=== PATIENT | female | born 1950 | race Caucasian/White ===

== ENCOUNTER → 2016-06-26 | Outpatient (CLI) | payer MEDICARE, OTHER ==
[~2016-06-26] MED LIST: PROTONIX40 MG PO
== END ==
LOC: KOH-I 13:23
DX: R05 Cough (principal); M54.2 Cervicalgia; M54.9 Dorsalgia, unspecified; M47.816 Spondylosis without myelopathy or radiculopathy, lumbar region; M47.814 Spondylosis without myelopathy or radiculopathy, thoracic region; M47.812 Spondylosis without myelopathy or radiculopathy, cervical region
CPT/HCPCS: 71020; 72050; 72070; 72110

== ENCOUNTER → 2016-08-01 | Outpatient (CLI) | payer MEDICARE, OTHER | LOC: EMI 07-20 15:15 | DX: M54.5 Low back pain (principal) | CPT/HCPCS: 72148 ==

== ENCOUNTER → 2020-10-29 | Outpatient (CLI) | payer MEDICARE, OTHER ==
[~2020-10-29] MED LIST changes: +ALPRAZOLAM XR0.5 MG PO; +AMIODARONE HCL200 MG PO; +ASPIR 8181 MG PO; +BACTROBAN OINT22 GM EXT; +BEVESPI AEROSPHERE INH; +BUDESONIDE0.5 MG/2 M NEB; +CALCIUM + D3 E1 EACH PO; +CETIRIZINE HCL10 M1 PO; +CLEOCIN 150MG150 MG PO; +COMBIVENT RESPIM4 GM INH; +DEX4 GLUCOSE4 GM PO; +DIABETA 5 MG TAB5 MG PO; +ELIQUIS 5 MG TAB5 MG PO; +FERROUS SULFAT325 M2 PO; +FLUOXETINE HCL10 MG PO; +GABAPENTIN800 MG PO; +GLUCAGEN1 MG/1 ML IM; +GLUCOPHAGE500 MG PO; +HUMALOG 10100 UNITS/ SC; +HUMALOG100 UNIT/3 SQ; +HYDROCODONE-AC1 EAC1 PO; +IBUPROFEN600 MG PO; +IPRAT-ALBUT 0.5-3 ML INH; +IPRAT-ALBUT 0.5-3 ML NEB; +K-DUR TAB 10 M10 MEQ PO; +LANTUS INS100 UTS/M1 SQ; +LANTUS100 UNIT/1 SC; +LANTUS100 UNIT/1 SQ; +LASIX20 MG PO; +LASIX40 MG PO; +LEVAQUIN500 MG PO; +LIPITOR TAB 1010 MG PO; +LISINOPRIL2.5 MG PO; +LOPRESSOR50 MG PO; +MEROPENEM500 MG IV; +NEO-POLYCIN HC3.5 GM OU; +NEURONTIN 400400 MG PO; +OMEPRAZOLE-BIC1 EACH PO; +POLYETHYLENE GL17 GM PO; +PROAIR HFA8.5 GM INH; +PROTONIX 40 MG40 M1 PO; +REGLAN 10 MG TA10 MG PO; +SANTYL OINT 3030 GM TP; +SERTRALINE HCL50 MG PO; +VANCOMYCIN500 MG/101 IV; +ZANAFLEX4 MG PO; +ZESTRIL 40 MG T40 MG PO; +ZESTRIL40 MG PO; +ZOCOR20 MG PO; +ZOFRAN ODT 4 MG4 MG SL
== END ==
LOC: KOH-I 16:03
DX: R05 Cough (principal); M54.2 Cervicalgia; M54.5 Low back pain; M47.812 Spondylosis without myelopathy or radiculopathy, cervical region; M48.02 Spinal stenosis, cervical region; M43.8X2 Other specified deforming dorsopathies, cervical region; M48.04 Spinal stenosis, thoracic region; M40.56 Lordosis, unspecified, lumbar region; I77.819 Aortic ectasia, unspecified site
CPT/HCPCS: 71046; 72040; 72070; 72100

== ENCOUNTER 2020-12-03 20:03 | Inpatient (IN) | payer MEDICARE, OTHER ==
[~2020-12-03] VITALS: Ht 170.2 cm; Wt 73.0 kg
[~2020-12-03 20:03] MED LIST changes: -ALPRAZOLAM XR0.5 MG PO; -AMIODARONE HCL200 MG PO; -BUDESONIDE0.5 MG/2 M NEB; -DEX4 GLUCOSE4 GM PO; -ELIQUIS 5 MG TAB5 MG PO; -FERROUS SULFAT325 M2 PO; -GABAPENTIN800 MG PO; -GLUCAGEN1 MG/1 ML IM; -HUMALOG 10100 UNITS/ SC; -HYDROCODONE-AC1 EAC1 PO; -IPRAT-ALBUT 0.5-3 ML NEB; -LANTUS INS100 UTS/M1 SQ; -LANTUS100 UNIT/1 SQ; -LASIX40 MG PO; -LIPITOR TAB 1010 MG PO; -LISINOPRIL2.5 MG PO; -MEROPENEM500 MG IV; -POLYETHYLENE GL17 GM PO; -PROTONIX 40 MG40 M1 PO; -SANTYL OINT 3030 GM TP; -VANCOMYCIN500 MG/101 IV
[2020-12-03 20:40] LABS: HEMOGLOBIN 9.3 gm/dl (12.3-15.3); RED BLOOD COUNT 3.7 M/UL (4.00-5.10); WHITE BLOOD COUNT 16.8 K/UL (4.5-11.0)
[2020-12-03 21:12] LABS: BUN/CREATININE RATIO 25 (0-10)
[2020-12-04 03:56] LABS: RED BLOOD COUNT 3.64 M/UL (4.00-5.10); WHITE BLOOD COUNT 18.2 K/UL (4.5-11.0)
[2020-12-04 04:12] LABS: BUN/CREATININE RATIO 20 (0-10)
[2020-12-04 21:38] LABS: ACINETOBACTER BAUMANNII Not Detected (Negative); CANDIDA ALBICANS Not Detected (Negative); CANDIDA KRUSEI Not Detected (Negative); CANDIDA TROPICALIS Not Detected (Negative); ENTEROCOCCUS Not Detected (Negative); ESCHERICHIA COLI Not Detected (Negative); HAEMOPHILUS INFLUENZAE Not Detected (Negative); KLEBSIELLA OXYTOCA Not Detected (Negative); KLEBSIELLA PNEUMONIAE Not Detected (Negative); KPC-CARBAPENEM-RESISTANCE GENE Not Detected (Negative); PROTEUS Not Detected (Negative); PSEUDOMONAS AERUGINOSA Not Detected (Negative); SERRATIA MARCESANS Not Detected (Negative); STAPHYLOCOCCUS AUREUS Not Detected (Negative); STREP AGALACTIAE (GROUP B) Not Detected (Negative); STREP PYOGENES (GROUP A) Not Detected (Negative); STREPTOCOCCUS Not Detected (Negative); mecA (METHICILLIN RESIST GENE Not Detected (Negative); vanA/B (VANCOMYCIN RESIST GENE Not Detected (Negative)
[2020-12-04 23:11] LABS: STAPHYLOCOCCUS DETECTED (Negative)
[2020-12-05 04:16] LABS: HEMOGLOBIN 8.2 gm/dl (12.3-15.3); RED BLOOD COUNT 3.36 M/UL (4.00-5.10)
[2020-12-05 04:26] LABS: WHITE BLOOD COUNT 9.6 K/UL (4.5-11.0)
[2020-12-05 04:36] LABS: BUN/CREATININE RATIO 30 (0-10)
[2020-12-06 02:52] LABS: HEMOGLOBIN 9.8 gm/dl (12.3-15.3)
[2020-12-06 02:57] LABS: RED BLOOD COUNT 3.94 M/UL (4.00-5.10)
[2020-12-06 03:13] LABS: BUN/CREATININE RATIO 33 (0-10)
[2020-12-07 05:51] LABS: HEMOGLOBIN 9.5 gm/dl (12.3-15.3); RED BLOOD COUNT 3.63 M/UL (4.00-5.10)
[2020-12-07 05:55] LABS: WHITE BLOOD COUNT 13.3 K/UL (4.5-11.0)
[2020-12-07 06:22] LABS: BUN/CREATININE RATIO 25 (0-10)
[2020-12-08 03:22] LABS: HEMOGLOBIN 8.8 gm/dl (12.3-15.3); RED BLOOD COUNT 3.44 M/UL (4.00-5.10); WHITE BLOOD COUNT 10.8 K/UL (4.5-11.0)
[2020-12-08 04:05] LABS: BUN/CREATININE RATIO 27 (0-10)
[2020-12-09 05:16] LABS: HEMOGLOBIN 8.9 gm/dl (12.3-15.3); RED BLOOD COUNT 3.52 M/UL (4.00-5.10)
[2020-12-09 05:17] LABS: WHITE BLOOD COUNT 7.6 K/UL (4.5-11.0)
[2020-12-09 05:49] LABS: BUN/CREATININE RATIO 39 (0-10)
[2020-12-10 05:29] LABS: HEMOGLOBIN 8.8 gm/dl (12.3-15.3); RED BLOOD COUNT 3.44 M/UL (4.00-5.10)
[2020-12-10 05:31] LABS: WHITE BLOOD COUNT 10.8 K/UL (4.5-11.0)
[2020-12-10 05:58] LABS: BUN/CREATININE RATIO 43 (0-10)
[2020-12-11 05:31] LABS: HEMOGLOBIN 9.1 gm/dl (12.3-15.3); RED BLOOD COUNT 3.57 M/UL (4.00-5.10); WHITE BLOOD COUNT 9.2 K/UL (4.5-11.0)
[2020-12-11 05:56] LABS: BUN/CREATININE RATIO 51 (0-10)
[2020-12-12 07:03] LABS: HEMOGLOBIN 8.9 gm/dl (12.3-15.3); RED BLOOD COUNT 3.59 M/UL (4.00-5.10); WHITE BLOOD COUNT 10.5 K/UL (4.5-11.0)
[2020-12-12 08:23] LABS: BUN/CREATININE RATIO 60 (0-10)
[2020-12-12 12:10] LABS: ORGANISM ID Not indicated. (.); SPECIMEN SOURCE Urine (.); STREPTOCOCCUS PNEUMONIAE AG Negative (Negative)
[2020-12-13 05:09] LABS: HEMOGLOBIN 9.9 gm/dl (12.3-15.3); RED BLOOD COUNT 3.89 M/UL (4.00-5.10)
[2020-12-13 05:41] LABS: BUN/CREATININE RATIO 56 (0-10)
[2020-12-14 05:30] LABS: HEMOGLOBIN 9.9 gm/dl (12.3-15.3); RED BLOOD COUNT 3.89 M/UL (4.00-5.10); WHITE BLOOD COUNT 11.7 K/UL (4.5-11.0)
[2020-12-14 06:02] LABS: BUN/CREATININE RATIO 58 (0-10)
[2020-12-14] MEDS ORDERED: FERROUS SULFAT325 M2 PO (10:31)
[2020-12-14] MEDS ORDERED: ELIQUIS 5 MG TAB5 MG PO (10:31)
[2020-12-14] MEDS ORDERED: AMIODARONE HCL200 MG PO (10:31)
[2020-12-14] MEDS ORDERED: LASIX40 MG PO (10:38)
[2020-12-15 07:38] LABS: BUN/CREATININE RATIO 51 (0-10)
[2020-12-16 10:57] LABS: HEMOGLOBIN 10.1 gm/dl (12.3-15.3); RED BLOOD COUNT 3.99 M/UL (4.00-5.10)
[2020-12-16 11:25] LABS: BUN/CREATININE RATIO 43 (0-10)
[2020-12-17 04:08] LABS: BUN/CREATININE RATIO 32 (0-10)
[2020-12-18 07:14] LABS: BUN/CREATININE RATIO 32 (0-10)
[2020-12-19 07:12] LABS: BUN/CREATININE RATIO 38 (0-10)
[2020-12-20 05:26] LABS: HEMOGLOBIN 9.2 gm/dl (12.3-15.3); RED BLOOD COUNT 3.61 M/UL (4.00-5.10); WHITE BLOOD COUNT 5.3 K/UL (4.5-11.0)
[2020-12-20 06:00] LABS: BUN/CREATININE RATIO 31 (0-10)
[2020-12-21 06:08] LABS: BUN/CREATININE RATIO 26 (0-10)
[2020-12-21] MEDS ORDERED: GABAPENTIN800 MG PO (11:16)
[2020-12-21] MEDS ORDERED: MEROPENEM500 MG IV (11:21)
[2020-12-21] MEDS ORDERED: VANCOMYCIN500 MG/101 IV (11:21)
--- NOTE | 2020-12-21 13:49 | NUR ---
report given to admitting nurse Charles from [facility]
== END 2020-12-21 16:50 | DRG 853 ==
LOC: ER1 20:03 → CDU 21:58 → M/S 21:58 → PROG CARE 21:58 → M/S 12-10 21:30
PROVIDERS: Internal Medicine; Preventive Medicine Occupational Medicine; Surgery; ADMIT Internal Medicine
PROC: B24BZZ4 Ultrasonography of Heart with Aorta, Transesophageal (ICD-10-PCS; 2020-12-03)
PROC: 0Y6H0Z1 Detachment at Right Lower Leg, High, Open Approach (ICD-10-PCS; principal; 2020-12-04 08:23)
PROC: 0QBJ0ZZ Excision of Right Fibula, Open Approach (ICD-10-PCS; 2020-12-07)
DX: A41.9 Sepsis, unspecified organism (principal); A48.0 Gas gangrene; J18.9 Pneumonia, unspecified organism; J96.21 Acute and chronic respiratory failure with hypoxia; I50.33 Acute on chronic diastolic (congestive) heart failure; R65.21 Severe sepsis with septic shock; E11.52 Type 2 diabetes mellitus with diabetic peripheral angiopathy with gangrene; I48.92 Unspecified atrial flutter; E87.1 Hypo-osmolality and hyponatremia; Z20.822 Contact with and (suspected) exposure to COVID-19; I08.3 Combined rheumatic disorders of mitral, aortic and tricuspid valves; E87.8 Other disorders of electrolyte and fluid balance, not elsewhere classified; E86.0 Dehydration; D64.9 Anemia, unspecified; I45.81 Long QT syndrome; I48.0 Paroxysmal atrial fibrillation; J44.9 Chronic obstructive pulmonary disease, unspecified; I11.0 Hypertensive heart disease with heart failure; I95.9 Hypotension, unspecified; Z79.4 Long term (current) use of insulin; Z79.01 Long term (current) use of anticoagulants; Z79.82 Long term (current) use of aspirin; Z88.0 Allergy status to penicillin; Z83.3 Family history of diabetes mellitus; Z89.511 Acquired absence of right leg below knee; Z82.49 Family history of ischemic heart disease and other diseases of the circulatory system
CPT/HCPCS: ECHO; 36415; 36600; 71045; 73630; 80048; 80053; 80076; 80202; 81001; 82140; 82803; 82962; 83540; 83550; 83605; 83690; 83735; 84132; 84439; 84443; 85025; 85652; 86140; 86738; 87040; 87077; 87081; 87086; 87150; 87186; 87278; 87899; 93005; 93306; 94640; 94660; 94664; 94760; 96365; 97110; 97110-GP-CQ; 97162; 97166; 97530; 97530-GP-CQ; 99284; C1751; G0378; J1100; J1120; J1650; J1940; J2001; J2185; J2270; J2405; J2704; J2930; J3010; J3370; J7030; J7050; J7070; J7120; U0002

== ENCOUNTER 2021-01-14 17:25 | Inpatient (IN) | payer MEDICARE, OTHER ==
[~2021-01-14] VITALS: Ht 160 cm; Wt 74.6 kg
[~2021-01-14 17:25] MED LIST changes: +AMIODARONE HCL200 MG PO; +ELIQUIS 5 MG TAB5 MG PO; +FERROUS SULFAT325 M2 PO; +GABAPENTIN800 MG PO; +LASIX40 MG PO; +MEROPENEM500 MG IV; +VANCOMYCIN500 MG/101 IV
[2021-01-14 17:56] LABS: HEMOGLOBIN 9.9 gm/dl (12.3-15.3); RED BLOOD COUNT 3.75 M/UL (4.00-5.10); WHITE BLOOD COUNT 17.5 K/UL (4.5-11.0)
[2021-01-14 18:18] LABS: BUN/CREATININE RATIO 27 (0-10)
[2021-01-14] MEDS ORDERED: LISINOPRIL2.5 MG PO (21:37)
[2021-01-14] MEDS ORDERED: LIPITOR TAB 1010 MG PO (21:38)
[2021-01-14] MEDS ORDERED: ALPRAZOLAM XR0.5 MG PO (21:40)
[2021-01-14] MEDS ORDERED: HYDROCODONE-AC1 EAC1 PO (21:43)
[2021-01-14] MEDS ORDERED: PROTONIX 40 MG40 M1 PO (21:56)
[2021-01-15 05:35] LABS: HEMOGLOBIN 9.7 gm/dl (12.3-15.3); RED BLOOD COUNT 3.69 M/UL (4.00-5.10)
[2021-01-15 05:36] LABS: WHITE BLOOD COUNT 11.3 K/UL (4.5-11.0)
[2021-01-15 06:10] LABS: BUN/CREATININE RATIO 28 (0-10)
[2021-01-16 05:57] LABS: HEMOGLOBIN 8.6 gm/dl (12.3-15.3); WHITE BLOOD COUNT 11.3 K/UL (4.5-11.0)
[2021-01-16 06:11] LABS: RED BLOOD COUNT 3.29 M/UL (4.00-5.10)
[2021-01-16 06:17] LABS: BUN/CREATININE RATIO 29 (0-10)
[2021-01-17 05:51] LABS: RED BLOOD COUNT 3.06 M/UL (4.00-5.10)
[2021-01-17 05:57] LABS: WHITE BLOOD COUNT 5.4 K/UL (4.5-11.0)
[2021-01-17 06:18] LABS: BUN/CREATININE RATIO 21 (0-10)
[2021-01-18 05:07] LABS: BUN/CREATININE RATIO 22 (0-10)
[2021-01-19 07:47] LABS: HEMOGLOBIN 10.2 gm/dl (12.3-15.3); RED BLOOD COUNT 3.97 M/UL (4.00-5.10); WHITE BLOOD COUNT 6.9 K/UL (4.5-11.0)
[2021-01-19 07:59] LABS: BUN/CREATININE RATIO 18 (0-10)
[2021-01-20] MEDS ORDERED: PROTONIX 40 MG40 M1 PO (12:40)
[2021-01-21 03:32] LABS: HEMOGLOBIN 10.6 gm/dl (12.3-15.3); RED BLOOD COUNT 4.18 M/UL (4.00-5.10)
[2021-01-21 03:56] LABS: WHITE BLOOD COUNT 9.6 K/UL (4.5-11.0)
[2021-01-21 04:16] LABS: BUN/CREATININE RATIO 34 (0-10)
[2021-01-22 03:56] LABS: BUN/CREATININE RATIO 23 (0-10)
[2021-01-23] MEDS ORDERED: BUDESONIDE0.5 MG/2 M NEB (13:44)
[2021-01-23] MEDS ORDERED: LANTUS INS100 UTS/M1 SQ (13:44)
[2021-01-23] MEDS ORDERED: POLYETHYLENE GL17 GM PO (13:44)
[2021-01-23] MEDS ORDERED: IPRAT-ALBUT 0.5-3 ML NEB (13:44)
[2021-01-23] MEDS ORDERED: ALPRAZOLAM XR0.5 MG PO (13:44)
[2021-01-23] MEDS ORDERED: HUMALOG 10100 UNITS/ SC ×2 (13:44)
[2021-01-24 04:02] LABS: BUN/CREATININE RATIO 28 (0-10)
[2021-01-25 04:57] LABS: BUN/CREATININE RATIO 29 (0-10)
--- NOTE | 2021-01-25 13:39 | NUR ---
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 INCISION REMAINS WELL APPROXIMATED. SUTURES REMAIN CDI. INCISION LINE WITH SCABBING NOTED.
[2021-01-25] MEDS ORDERED: GLUCAGEN1 MG/1 ML IM (14:13)
[2021-01-25] MEDS ORDERED: SANTYL OINT 3030 GM TP (14:30)
[2021-01-25] MEDS ORDERED: LANTUS100 UNIT/1 SQ (14:36)
[2021-01-25] MEDS ORDERED: DEX4 GLUCOSE4 GM PO (14:36)
[2021-01-25] MEDS ORDERED: HUMALOG 10100 UNITS/ SC ×2 (14:45→14:53)
--- NOTE | 2021-01-25 16:46 | NUR ---
01/25/21 4813 REPORT CALLED TO [facility], SPOKE WITH LILIBETH. ALL QUESTIONS/CONCERNS ADDRESSED, REVIEWED PRESCRIPTIONS AND DISCHARGE INFORMATION. REQUESTED THAT IV BE LEFT TO LEFT FOREARM PT WILL BE RECEIVING ABT UPON TRANSFER.
== END 2021-01-25 17:50 | DRG 871 ==
LOC: ER1 17:25 → CDU 18:49 → CCU 18:49 → PROG CARE 18:49 → CCU 01-15 02:22 → PROG CARE 01-19 15:19
PROVIDERS: Emergency Medicine; Internal Medicine; Surgery; ADMIT Internal Medicine
PROC: 5A09457 Assistance with Respiratory Ventilation, 24-96 Consecutive Hours, Continuous Positive Airway Pressure (ICD-10-PCS; 2021-01-14)
PROC: 5A1945Z Respiratory Ventilation, 24-96 Consecutive Hours (ICD-10-PCS; 2021-01-15)
PROC: 0BH17EZ Insertion of Endotracheal Airway into Trachea, Via Natural or Artificial Opening (ICD-10-PCS; 2021-01-15)
PROC: 3E033XZ Introduction of Vasopressor into Peripheral Vein, Percutaneous Approach (ICD-10-PCS; 2021-01-15)
PROC: 0DH63UZ Insertion of Feeding Device into Stomach, Percutaneous Approach (ICD-10-PCS; principal; 2021-01-19)
PROC: 3E0G76Z Introduction of Nutritional Substance into Upper GI, Via Natural or Artificial Opening (ICD-10-PCS; 2021-01-19)
DX: A41.52 Sepsis due to Pseudomonas (principal); A48.0 Gas gangrene; R65.21 Severe sepsis with septic shock; Z20.822 Contact with and (suspected) exposure to COVID-19; G93.41 Metabolic encephalopathy; J15.9 Unspecified bacterial pneumonia; J96.21 Acute and chronic respiratory failure with hypoxia; J96.22 Acute and chronic respiratory failure with hypercapnia; L03.116 Cellulitis of left lower limb; J44.1 Chronic obstructive pulmonary disease with (acute) exacerbation; E87.1 Hypo-osmolality and hyponatremia; I48.92 Unspecified atrial flutter; E87.2 Acidosis; E87.8 Other disorders of electrolyte and fluid balance, not elsewhere classified; E11.65 Type 2 diabetes mellitus with hyperglycemia; I25.10 Atherosclerotic heart disease of native coronary artery without angina pectoris; L89.322 Pressure ulcer of left buttock, stage 2; L89.312 Pressure ulcer of right buttock, stage 2; L89.620 Pressure ulcer of left heel, unstageable; R13.10 Dysphagia, unspecified; I48.0 Paroxysmal atrial fibrillation; D64.9 Anemia, unspecified; L89.152 Pressure ulcer of sacral region, stage 2; E11.621 Type 2 diabetes mellitus with foot ulcer; L97.529 Non-pressure chronic ulcer of other part of left foot with unspecified severity; E16.2 Hypoglycemia, unspecified; R53.81 Other malaise; Z79.82 Long term (current) use of aspirin; Z79.01 Long term (current) use of anticoagulants; Z79.4 Long term (current) use of insulin; Z99.81 Dependence on supplemental oxygen; Z89.511 Acquired absence of right leg below knee; Z82.49 Family history of ischemic heart disease and other diseases of the circulatory system; Z83.3 Family history of diabetes mellitus; Z88.0 Allergy status to penicillin
CPT/HCPCS: 31500; 36415; 36600; 71045; 73630; 74018; 80048; 80053; 80202; 81001; 82550; 82553; 82803; 82962; 83036; 83605; 83735; 83874; 83880; 84132; 84484; 85025; 85027; 87040; 92526; 92610; 93005; 94002; 94003; 94640; 94660; 94664; 94760; 97110; 97162; 97166; 97530-GP-CQ; 99285; A6212; C9113; J0360; J1650; J1940; J2185; J2250; J2270; J2405; J2704; J2930; J3010; J3370; J7070; U0002

== ENCOUNTER → 2021-06-17 | Outpatient (CLI) | payer MEDICARE ==
[~2021-06-17] MED LIST changes: +ALPRAZOLAM XR0.5 MG PO; +BUDESONIDE0.5 MG/2 M NEB; +DEX4 GLUCOSE4 GM PO; +GLUCAGEN1 MG/1 ML IM; +HUMALOG 10100 UNITS/ SC; +HYDROCODONE-AC1 EAC1 PO; +IPRAT-ALBUT 0.5-3 ML NEB; +LANTUS INS100 UTS/M1 SQ; +LANTUS100 UNIT/1 SQ; +LIPITOR TAB 1010 MG PO; +LISINOPRIL2.5 MG PO; +POLYETHYLENE GL17 GM PO; +PROTONIX 40 MG40 M1 PO; +SANTYL OINT 3030 GM TP
== END ==
LOC: EXRD 13:00
DX: I70.223 Atherosclerosis of native arteries of extremities with rest pain, bilateral legs (principal); R60.0 Localized edema
CPT/HCPCS: 93926

== ENCOUNTER 2021-12-14 12:57 | Emergency (ER) | payer MEDICARE, OTHER ==
[2021-12-14 13:42] LABS: HEMOGLOBIN 13.2 gm/dl (12.3-15.3); RED BLOOD COUNT 4.94 M/UL (4.00-5.10); WHITE BLOOD COUNT 6.8 K/UL (4.5-11.0)
[2021-12-14 14:03] LABS: BUN/CREATININE RATIO 29 (0-10)
[2021-12-14 16:46] LABS: BUN/CREATININE RATIO 28 (0-10)
== END 2021-12-14 20:45 | disposition home or self-care (01) ==
LOC: ER1 12:57
PROVIDERS: Emergency Medicine
DX: E11.65 Type 2 diabetes mellitus with hyperglycemia (principal); E78.5 Hyperlipidemia, unspecified; I10 Essential (primary) hypertension
CPT/HCPCS: 71045; 80048; 82962; 85025; 96374; 99285